=== PATIENT | male | born 1975 | race Caucasian/White ===

== ENCOUNTER 2022-12-11 20:18 | Emergency (ER) | payer BC, SELFPAY ==
[2022-12-11 20:29] VITALS: BP 139/89; PULSE 98; RESP 16; TEMP 36.9; O2SAT 98; BMI 30.8
[2022-12-11 22:55] VITALS: PULSE 83; O2SAT 96
[2022-12-11 22:56] VITALS: BP 132/82
--- NOTE | 2022-12-11 22:58 | PC.NURSE ---
Left nipple is swollen and has hard lump present with one inch of redness surrounding it. Pt attempted to drain at home, but only blood came out.
--- NOTE | 2022-12-12 01:23 | ED.SKABFB ---
HPI - Skin/Abscess/Foreign Bdy General Chief complaint: Skin/Abscess/Foreign Body Stated complaint: left side of chest is swollen Time Seen by Provider: 12/12/22 00:52 Source: patient Mode of arrival: Ambulatory Limitations: no limitations History of Present Illness HPI narrative: Patient is a healthy 39-year-old male who presents with left breast swelling and pain. 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 Right around his nipple area. He denies any injury fever or chills. He states that he took a knife he did it up and sterilized it in stuck it in his nipple to try and drain it. He says this did not work. Still having pain and worsening redness today came to the ED. denies any other swelling or lumps. No nipple drainage. No family history of breast cancer. Related Data Previous Rx's Medication Instructions Recorded sulfamethoxazole 800 1 tab PO BID 7 days #14 tabs 12/12/22 mg-trimethoprim 160 mg tablet (Bactrim DS) Allergies Allergy/AdvReac Type Severity Reaction Status Date / Time No Known Drug Allergies Allergy Verified 12/11/22 20:29 Review of Systems Review of Systems ROS Unobtainable: All systems reviewed & are unremarkable except as noted in HPI and below Patient History Social History Smoking Status: Current every day smoker Smoking Status: Current every day smoker tobacco type: cigars alcohol intake frequency: holidays/special occasions only Substance Use Type: does not use Exam Initial Vital Signs Initial Vital Signs: Vital Signs Temperature 98.4 F 12/11/22 20:29 Pulse Rate 98 H 12/11/22 20:29 Respiratory Rate 16 12/11/22 20:29 Blood Pressure 139/89 12/11/22 20:29 Pulse Oximetry 98 12/11/22 20:29 Oxygen Delivery Method Room Air 12/11/22 20:29 GENERAL: Well-appearing, well-nourished and in no acute distress. CARDIOVASCULAR: peripheral pulses in tact, cap refill <2 sec RESPIRATORY: No respiratory distress, speaks in full sentences without difficulty BREAST: Left breast swelling under left nipple no other masses lymph nodes her other areas of concern EXTREMITIES: Normal range of motion, no clubbing or edema. Neurovascularly intact NEUROLOGICAL: Cranial nerves II through XII grossly intact. Normal gait and speech. SKIN: Left area under left nipple 4 cm x 3 and 0.5 cm with mild erythema, no fluctuation no drainage from nipple Course Orders Ordered: Discontinued Medications Trimethoprim/Sulfamethoxazole (Trimeth/Sulfa 160/800 (Ds) Tablet) 1 tab PO NOW ONE Stop: 12/12/22 01:54 Last Admin: 12/12/22 01:59 Dose: 1 tab Documented By: AP Vital Signs Vital signs: Vital Signs - 8 hr 12/11/22 22:55 12/11/22 22:56 12/12/22 02:06 Pulse Rate 83 80 Respiratory Rate 18 Blood Pressure 132/82 135/85 Pulse Oximetry 96 97 Oxygen Delivery Method Room Air MDM - Skin/Abscess/Foreign Bdy MDM Narrative Medical decision making narrative: Patient is a healthy 47-year-old male who presents with swelling and erythema under left nipple for the last couple of days. No previous swelling or mass noted. There is some mild erythema. Possible lymph nodes cyst versus mass versus abscess. I think reasonable to start on antibiotics, with close monitoring and outpatient follow-up. This time there is really no need for blood work. No evidence of severe sepsis or any sepsis he is afebrile and vitals are stable. He has been icing it which does seem to help with pain. Given 1st dose of antibiotics here in the ED Discharge Plan Departure Patient Disposition: Home Clinical Impression: Cellulitis, Abscess of skin or subcutaneous tissue Instructions: DI for Skin Abscess Activity Restrictions/Additional Instructions: *You have been diagnosed with probable abscess *What to do: At this time recommend heating pad. Start antibiotics hopefully see some improvement. However redness is getting worse pain or swelling is getting worse than you need further evaluation. *Continue to take medications as directed Bactrim 1 tablet twice daily for 7 days *Follow up with your primary care provider in 2-3 days or call [phone] *Return to ER if you should have increasing redness pain swelling fever [or] any new, worsening or concerning symptoms Prescriptions: New sulfamethoxazole-trimethoprim [Bactrim DS] 800-160 mg tablet 1 tab PO BID 7 Days Qty: 14 0RF Stand Alone Forms: Patient Portal/API
[2022-12-12] MEDS: TRIMETH/SULFA 160/800 (DS) TABLET 1 TAB PO (01:59)
[2022-12-12 02:06] VITALS: BP 135/85; PULSE 80; RESP 18; O2SAT 97
== END 2022-12-12 02:07 | disposition home or self-care (01) ==
PROVIDERS: Emergency Provider Emergency Medicine
DX: N61.1 Abscess of the breast and nipple (principal)
CPT/HCPCS: 99283